=== PATIENT | female | born 2000 | race Caucasian/White ===

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

== ENCOUNTER 2019-01-25 12:03 | Emergency (ER) | payer OTHER ==
[2019-01-25 12:24] VITALS: BP 112/66; PULSE 82; RESP 20; TEMP 98.3
--- NOTE | 2019-01-25 12:35 | ED ---
Fall HPI - General Chief Complaint: Fall Stated Complaint: head injury from fall Time Seen by Provider: 01/25/19 12:26 Source: patient, RN notes reviewed Mode of arrival: ambulatory Limitations: no limitations - History of Present Illness Initial Comments: 18-year-old female presented emergency from chief complaint of headache, head injury. Patient states she was wrestling around with her friend yesterday states that she lost her balance was falling back into the wall though she has pulled off to the side toward the wall struck the ground with her head which is concrete floor. Patient states that she did not lose conscious though she felt dazed she had persistent headache associated nausea. Patient has no current neck pain, extremity weakness or paresthesias. Patient has no difficulty walking. No confusion per family. Patient did try taking some Tylenol with minimal relief. - Related Data Home Medications Medication Instructions Recorded Confirmed Acetaminophen Tab [Tylenol Tab] 1,000 mg PO Q6HR PRN 01/25/19 01/25/19 Levothyroxine Sodium [Tirosint] 88 mcg PO DAILY 01/25/19 01/25/19 Allergies Allergy/AdvReac Type Severity Reaction Status Date / Time latex Allergy Unknown Verified 01/25/19 12:40 all antibiotics Allergy Anaphylaxis Uncoded 01/25/19 12:24 Review of Systems ROS Statement: Those systems with pertinent positive or pertinent negative responses have been documented in the HPI. ROS Other: All systems not noted in ROS Statement are negative. Past Medical History Past Medical History: Thyroid Disorder Additional Past Medical History / Comment(s): autoimmune disorder, History of Any Multi-Drug Resistant Organisms: None Reported Past Surgical History: Adenoidectomy, Tonsillectomy Past Psychological History: Anxiety, Depression Smoking Status: Never smoker Past Alcohol Use History: None Reported Past Drug Use History: None Reported General Exam Limitations: no limitations General appearance: alert, in no apparent distress Head exam: Present: atraumatic, normocephalic, normal inspection Eye exam: Present: normal appearance, PERRL, EOMI. Absent: scleral icterus, conjunctival injection, periorbital swelling ENT exam: Present: normal exam, normal oropharynx, mucous membranes moist, TM's normal bilaterally Neck exam: Present: normal inspection, full ROM. Absent: tenderness, meningismus, lymphadenopathy Respiratory exam: Present: normal lung sounds bilaterally. Absent: respiratory distress, wheezes, rales, rhonchi, stridor Cardiovascular Exam: Present: regular rate, normal rhythm, normal heart sounds. Absent: systolic murmur, diastolic murmur, rubs, gallop, clicks Neurological exam: Present: alert, oriented X3, CN II-XII intact, reflexes normal. Absent: motor sensory deficit Skin exam: Present: warm, dry, intact, normal color. Absent: rash Course Vital Signs 01/25/19 12:21 Temperature 98.3 F Pulse Rate 82 Respiratory 20 Rate Blood Pressure 112/66 O2 Sat by Pulse 98 Oximetry Medical Decision Making - Medical Decision Making 18-year-old female presents emergency department for fall, head injury. CT is obtained secondary to headache, persistent nausea. Patient CT is unremarkable will be discharged return parameters were discussed. Disposition Clinical Impression: Fall, Head injury Disposition: HOME SELF-CARE Condition: Stable Instructions (If sedation given, give patient instructions): Head Injury (ED) Additional Instructions: Please return to the Emergency Department if symptoms worsen or any other concerns. Is patient prescribed a controlled substance at d/c from ED?: No Referrals: Ailyn Lomas MD [Primary Care Provider] - 1-2 days Time of Disposition: 13:16
--- NOTE | 2019-01-25 13:00 | CT ---
EXAMINATION TYPE: CT brain wo con DATE OF EXAM: 01/25/2019 COMPARISON: CT head 06/05/2009 HISTORY: Headache and nausea post head trauma. CT DLP: 989.5 mGycm. Automated Exposure Control for Dose Reduction was Utilized. Helical imaging thr ough the brain. TECHNIQUE: CT scan of the head is performed without contrast. FINDINGS: There is no acute intracranial hemorrhage, mass effect, or midline shift identified. The ventricles and sulci are within normal limits in size. The globes are intact and the visualized sin uses are clear. IMPRESSION: No acute intracranial hemorrhage, mass effect, or midline shift is seen.
== END 2019-01-25 13:20 | disposition home or self-care (01) ==
LOC: EC 12:03
DX: S09.90XA Unspecified injury of head, initial encounter (principal); E07.9 Disorder of thyroid, unspecified; Z79.890 Hormone replacement therapy; Z91.040 Latex allergy status; Z88.1 Allergy status to other antibiotic agents; W01.198A Fall on same level from slipping, tripping and stumbling with subsequent striking against other object, initial encounter; Y93.72 Activity, wrestling; Y93.83 Activity, rough housing and horseplay; Y92.009 Unspecified place in unspecified non-institutional (private) residence as the place of occurrence of the external cause
CPT/HCPCS: 70450; 99284

== ENCOUNTER → 2019-02-02 | Outpatient (CLI) | payer OTHER | END | disposition home or self-care (01) | LOC: LABWHC1 11:33 | PROVIDERS: ATTEND Internal Medicine Endocrinology, Diabetes & Metabolism | DX: E03.8 Other specified hypothyroidism (principal) | CPT/HCPCS: 36415; 84443 ==

== ENCOUNTER → 2019-03-29 | Outpatient (CLI) | payer OTHER | END | disposition home or self-care (01) | LOC: LABWHC1 12:49 | PROVIDERS: ATTEND Internal Medicine Endocrinology, Diabetes & Metabolism | DX: E03.8 Other specified hypothyroidism (principal) | CPT/HCPCS: 36415; 84443 ==

== ENCOUNTER → 2019-05-28 | Outpatient (CLI) | payer OTHER ==
[2019-05-28 13:16] LABS: Basophils # (A) 0.1 k/uL (0-0.2); Basophils % (A) 1 %; Eosinophils # (A) 0.1 k/uL (0-0.7); Eosinophils % (A) 3 %; HCT 38.7 % (34.0-46.0); Lymphocytes # (A) 0.9 k/uL (1.0-4.8); Lymphocytes % (A) 21 %; MCH 29.6 pg (25.0-35.0); MCHC 33.7 g/dL (31.0-37.0); MCV 87.9 fL (80.0-100.0); Mean Platelet Volume 8.2; Monocytes # (A) 0.5 k/uL (0-1.0); Monocytes % (A) 11 %; Neutrophils # (A) 2.6 k/uL (1.3-7.7); Neutrophils % (A) 61 %; Platelet Count 202 k/uL (150-450); RDW 13.8 % (11.5-15.5); WBC 4.3 k/uL (4.0-11.0)
== END | disposition home or self-care (01) ==
LOC: LABWHC1 11:15
PROVIDERS: ATTEND Internal Medicine Endocrinology, Diabetes & Metabolism
DX: Z00.01 Encounter for general adult medical examination with abnormal findings (principal); E03.8 Other specified hypothyroidism
CPT/HCPCS: 36415; 84443; 85025

== ENCOUNTER → 2019-07-22 | Outpatient (CLI) | payer OTHER | END | disposition home or self-care (01) | LOC: LABWHC1 13:35 | PROVIDERS: ATTEND Pediatrics Adolescent Medicine | DX: R94.6 Abnormal results of thyroid function studies (principal) | CPT/HCPCS: 36415; 84439; 84443; 86038 ==

== ENCOUNTER 2019-09-11 10:32 | Emergency (ER) | payer OTHER ==
[2019-09-11 10:39] VITALS: RESP 18
[2019-09-11] MEDS ORDERED: SODIUM CHLORIDE 0.9% 1,000 ML IV STA (10:56)
[2019-09-11] MEDS ORDERED: ONDANSETRON 4 MG/2 ML VIAL IVP STA (10:56)
[2019-09-11] MEDS ORDERED: KETOROLAC 30 MG/ML 1 ML VIAL IVP STA (10:56)
[2019-09-11] MEDS ORDERED: diphenhydrAMINE 50 MG/ML 1 ML VIAL IVP STA (10:56)
--- NOTE | 2019-09-11 11:04 | ED ---
Headache HPI - General Chief Complaint: Headache Stated Complaint: headache Time Seen by Provider: 09/11/19 10:41 Mode of arrival: ambulatory Limitations: no limitations - History of Present Illness Initial Comments: Patient is a 18-year-old female presenting to the emergency part with complaints of a headache 2 weeks. Patient states she has a history of headaches and occasional migraines but states it never lasted this long. Patient went to her PCP 5 days ago and was started on a migraine medicine, unsure of the name. Patient states it helped some but does not take the headache completely away. Patient states she came to the ER 2 days ago for evaluation however the wait was too long so she left AMA. Patient states yesterday she felt better so she did not come back in. Patient states she woke up this morning and her headache was back. She states it feels similar to previous headaches. Patient admits to photophobia as well as nausea. Patient denies fever, vomiting, diarrhea, chest pain, short of breath. Patient denies any trauma or injuries. Patient states she had a computed tomography scan of her head in January this year after suffering a concussion, and scan was normal. Patient has no other complaints at this time. Upon arrival to the ER, her vital signs are stable. - Related Data Home Medications Medication Instructions Recorded Confirmed Acetaminophen Tab [Tylenol Tab] 1,000 mg PO Q6HR PRN 01/25/19 01/25/19 Levothyroxine Sodium [Tirosint] 88 mcg PO DAILY 01/25/19 01/25/19 Previous Rx's Medication Instructions Recorded Ondansetron Odt [Zofran Odt] 4 mg PO Q8HR PRN #10 tab 09/11/19 Allergies Allergy/AdvReac Type Severity Reaction Status Date / Time latex Allergy Unknown Verified 01/25/19 12:40 all antibiotics Allergy Anaphylaxis Uncoded 01/25/19 12:24 Review of Systems ROS Statement: Those systems with pertinent positive or pertinent negative responses have been documented in the HPI. ROS Other: All systems not noted in ROS Statement are negative. Past Medical History Past Medical History: Thyroid Disorder Additional Past Medical History / Comment(s): autoimmune disorder, History of Any Multi-Drug Resistant Organisms: None Reported Past Surgical History: Adenoidectomy, Tonsillectomy Past Psychological History: Anxiety, Depression Smoking Status: Never smoker Past Alcohol Use History: None Reported Past Drug Use History: None Reported General Exam - General Exam Comments Initial Comments: GENERAL: Well-appearing, well-nourished and in no acute distress. HEAD: Atraumatic, normocephalic. EYES: Pupils equal round and reactive to light, extraocular movements intact, sclera anicteric, conjunctiva are normal. ENT: TMs normal, nares patent, oropharynx clear without exudates. Moist mucous membranes. NECK: Normal range of motion, supple without lymphadenopathy or JVD. LUNGS: Breath sounds clear to auscultation bilaterally and equal. No wheezes rales or rhonchi. HEART: Regular rate and rhythm without murmurs, rubs or gallops. ABDOMEN: Soft, nontender, normoactive bowel sounds. No guarding, no rebound. No masses appreciated. : Deferred EXTREMITIES: Normal range of motion, no pitting or edema. No clubbing or cyanosis. NEUROLOGICAL: Cranial nerves II through XII grossly intact. Normal speech, normal gait. PSYCH: Normal mood, normal affect. SKIN: Warm, Dry, normal turgor, no rashes or lesions noted. Limitations: no limitations Course Vital Signs 09/11/19 09/11/19 10:36 12:02 Temperature 98.4 F 98.7 F Pulse Rate 90 70 Respiratory 18 18 Rate Blood Pressure 114/69 111/75 O2 Sat by Pulse 98 98 Oximetry Medical Decision Making - Medical Decision Making Patient is a 18-year-old female presenting to the ER with a headache that has been intermittent for 2 weeks. Patient was recently started on migraine medicine from her doctor. Vital signs are stable upon arrival. Exam is unremarkable. Patient had recent CT of the head in January of this year which was normal. She denies any further trauma or injuries. Patient was given IV fluids, Toradol, Zofran, Benadryl reports significant improvement in her symptoms. Patient is requesting to be discharged. Patient will follow up with her PCP. Return parameters were discussed with her and she verbalized understanding. Patient is stable for discharge at this time. Disposition Clinical Impression: Headache Disposition: HOME SELF-CARE Condition: Stable Instructions (If sedation given, give patient instructions): Acute Headache (ED) Additional Instructions: Please return to the Emergency Department if symptoms worsen or any other concerns. Follow-up with PCP as discussed. May take Zofran as needed for nausea. Prescriptions: Ondansetron Odt [Zofran Odt] 4 mg PO Q8HR PRN #10 tab PRN Reason: Nausea Is patient prescribed a controlled substance at d/c from ED?: No Referrals: Ailyn Lomas MD [Primary Care Provider] - 1-2 days
[2019-09-11 12:03] VITALS: BP 111/75; PULSE 70; TEMP 98.7
== END 2019-09-11 11:54 | disposition home or self-care (01) ==
LOC: EC 10:32
DX: G43.909 Migraine, unspecified, not intractable, without status migrainosus (principal); E07.9 Disorder of thyroid, unspecified; Z79.890 Hormone replacement therapy; Z88.1 Allergy status to other antibiotic agents; Z91.040 Latex allergy status
CPT/HCPCS: 99283; 96374; 96375 ×2; 96361; J1200; J2405; J1885

== ENCOUNTER → 2019-10-02 | Outpatient (CLI) | payer OTHER ==
[2019-10-02 11:39] LABS: Basophils % (A) 0 %; Eosinophils # (A) 0.1 k/uL (0-0.7); Eosinophils % (A) 2 %; HCT 38.8 % (34.0-46.0); HGB 13.3 gm/dL (11.4-16.0); Lymphocytes # (A) 0.9 k/uL (1.0-4.8); Lymphocytes % (A) 16 %; MCH 29.3 pg (25.0-35.0); MCHC 34.2 g/dL (31.0-37.0); MCV 85.8 fL (80.0-100.0); Mean Platelet Volume 8.6; Monocytes # (A) 0.6 k/uL (0-1.0); Monocytes % (A) 11 %; Neutrophils # (A) 3.9 k/uL (1.3-7.7); Neutrophils % (A) 68 %; Platelet Count 245 k/uL (150-450); RBC 4.52 m/uL (3.80-5.40); RDW 13.6 % (11.5-15.5); WBC 5.8 k/uL (4.0-11.0)
[2019-10-02 16:59] LABS: African American GFR (CKD) 107.4 (60.0-200.0); Albumin 4.8 g/dL (3.80-4.90); Albumin/Globulin Ratio 2.53 (1.60-3.17); Anion Gap 10.4 mmol/L (4.00-12.00); BUN/Creat Ratio 14.44 Ratio (12.00-20.00); Calcium 9.5 mg/dL (8.7-10.3); Carbon Dioxide 25.6 mmol/L (21.6-31.8); Globulin 1.9 g/dL (1.6-3.3); Non-African American GFR(CKD) 92.7 (60.0-200.0); Potassium 4.2 mmol/L (3.5-5.5); Total Bilirubin 0.5 mg/dL (0.2-1.2); Total Protein 6.7 g/dL (6.2-8.2)
[2019-10-02 17:58] LABS: Cat Epith & Dander IgE <0.10 kU/L; Cockroach IgE <0.10 kU/L; Dermato. farinae IgE <0.10 kU/L; Dog Dander IgE <0.10 kU/L
[2019-10-02 17:59] LABS: Alternaria alternata IgE <0.10 kU/L; Aspergillus fumagatus IgE <0.10 kU/L; Cladosporian herbarum IgE <0.10 kU/L
[2019-10-02 18:01] LABS: Birch IgE <0.10 kU/L; Maple (Box Elder) IgE <0.10 kU/L; Oak IgE <0.10 kU/L
[2019-10-02 18:02] LABS: Elm IgE <0.10 kU/L; Ragweed,Common IgE <0.10 kU/L
[2019-10-02 18:03] LABS: Red Top (Bentgrass) IgE <0.10 kU/L
[2019-10-02 18:05] LABS: Egg White IgE <0.10 kU/L
[2019-10-02 18:06] LABS: Codfish IgE <0.10 kU/L
[2019-10-02 18:07] LABS: Peanut IgE <0.10 kU/L; Soybean IgE <0.10 kU/L
[2019-10-02 18:08] LABS: Clam IgE <0.10 kU/L; Shrimp IgE <0.10 kU/L; Walnut IgE (Food) <0.10 kU/L
[2019-10-02 18:09] LABS: Scallop IgE <0.10 kU/L
[2019-10-02 18:26] LABS: Immunoglobulin E 1.17 IU/mL (0.00-114.00); Immunoglobulin E 1.23 IU/mL (0.00-114.00)
[2019-10-04 04:22] LABS: Mycoplasma IgM Antibody 0.38 INDEX (<=0.90)
[2019-10-04 14:06] LABS: EBV-EA (IgG) 1.5 AI; EBV-EBNA(IgG) 6.9 AI; EBV-VCA (IgG) 5.7 AI; EBV-VCA (IgM) 0.4 AI
[2019-10-05 14:10] LABS: Strep DNASE B Antibody <86 U/mL (0-260)
== END | disposition home or self-care (01) ==
LOC: LABWHC1 11:13
PROVIDERS: ATTEND Pediatrics Adolescent Medicine
DX: G43.909 Migraine, unspecified, not intractable, without status migrainosus (principal)
CPT/HCPCS: 36415; 80053; 82785; 84439; 84443; 85025; 86003; 86060; 86215; 86663; 86664; 86665; 86738

== ENCOUNTER → 2020-03-07 | Outpatient (CLI) | payer OTHER | END | disposition home or self-care (01) | LOC: LABWHC1 14:44 | PROVIDERS: ATTEND Internal Medicine Endocrinology, Diabetes & Metabolism | DX: E03.8 Other specified hypothyroidism (principal) | CPT/HCPCS: 36415; 84443 ==

== ENCOUNTER 2020-07-25 01:05 | Emergency (ER) | payer OTHER ==
[2020-07-25] MEDS ORDERED: TOPICAL SKIN ADHESIVE 1 EACH AMP TOPICAL ONE (01:41)
--- NOTE | 2020-07-25 01:53 | ED ---
Psych HPI - General Source: police Mode of arrival: ambulatory <Jennifer Sanchez - Last Filed: 07/25/20 08:07> <Zen Joshua - Last Filed: 07/25/20 13:26> - General Chief Complaint: Psychiatric Symptoms Stated Complaint: petition Time Seen by Provider: 07/25/20 01:31 - History of Present Illness Initial Comments: Sourav smalls a 19-year-old female with a history of depression and anxiety who is brought to the ER today by her friendsafter she got very upset and used a hunting knife to cut her left arm. Patient reports she has a history of cutting she cuts herself frequently and that she didn't feel she needed be the hospital. UPon arrival in the ER parking lot patient ran and PD was called and found the patient approximately 0.5 mi from the hospital and brought her in. (Jennifer Sanchez) - Related Data Home Medications Medication Instructions Recorded Confirmed Levothyroxine Sodium [Tirosint-Ivet] 125 mcg PO DAILY 07/25/20 07/25/20 Allergies Allergy/AdvReac Type Severity Reaction Status Date / Time bacitracin Allergy Unknown Verified 07/25/20 09:13 [From Neosporin ([id number])] latex Allergy Unknown Verified 07/25/20 09:13 neomycin Allergy Unknown Verified 07/25/20 09:13 [From Neosporin ([id number])] polymyxin B Allergy Unknown Verified 07/25/20 09:13 [From Neosporin ([id number])] all antibiotics Allergy Anaphylaxis Uncoded 07/25/20 09:13 SEAFOOD Allergy Unknown Uncoded 07/25/20 09:13 Review of Systems ROS Other: All systems not noted in ROS Statement are negative. <Jennifer Sanchez - Last Filed: 07/25/20 08:07> ROS Other: All systems not noted in ROS Statement are negative. <Zen Joshua - Last Filed: 07/25/20 13:26> ROS Statement: Those systems with pertinent positive or pertinent negative responses have been documented in the HPI. Past Medical History Past Medical History: Thyroid Disorder Additional Past Medical History / Comment(s): autoimmune disorder, History of Any Multi-Drug Resistant Organisms: None Reported Past Surgical History: Adenoidectomy, Tonsillectomy Past Psychological History: Anxiety, Depression, PTSD Smoking Status: Never smoker Past Alcohol Use History: Occasional Past Drug Use History: None Reported <Jennifer Sanchez - Last Filed: 07/25/20 08:07> General Exam Limitations: no limitations <Jennifer Sanchez - Last Filed: 07/25/20 08:07> - General Exam Comments Initial Comments: Physical Exam GENERAL: Patient is well-developed and well-nourished. Patient is nontoxic and well-hydrated and is in no distress. HENT: Normocephalic, Atraumatic. EYES: PERRL, EOMI PULMONARY: Unlabored respirations. CARDIOVASCULAR: RRR Warm and well perfused extremities ABDOMEN: Non-distended SKIN: Laceration to anterior upper arm approx 5cm in length, superficial, no significant bleeding Superficial laceration left forearm, 3cm in length, no significant bleeding Scars on arms consistent with history of cutting : Deferred NEUROLOGIC: Alert and oriented Normal speech Normal gait MUSCULOSKELETAL: Moving all extremities with no apparent injury PSYCHIATRIC: Agitation (Jennifer Sanchez) Course Vital Signs 07/25/20 07/25/20 07/25/20 01:13 02:09 09:55 Temperature 99.1 F 98.7 F 98.4 F Pulse Rate 165 H 129 H 92 Respiratory 26 H 16 17 Rate Blood Pressure 131/65 105/58 113/71 O2 Sat by Pulse 98 99 98 Oximetry Procedures - Laceration Laceration #1 Consent Obtained: verbal consent Indication: laceration Site: upper extremity Size (cm): 3 Description: linear Depth: simple, single layer Type of Sutures: other (skin glue) Patient Tolerated Procedure: well Laceration #2 Consent Obtained: verbal consent Indication: laceration Site: upper extremity Size (cm): 5 Description: linear Depth: simple, single layer Type of Sutures: other (skin glue) Patient Tolerated Procedure: well, no complications <Jennifer Sanchez - Last Filed: 07/25/20 08:07> Medical Decision Making <Jennifer Sanchez - Last Filed: 07/25/20 08:07> <Zen Joshua - Last Filed: 07/25/20 13:26> - Medical Decision Making Patient was seen and evaluated history is obtained from patient and PD superficial lacerations were cleansed with Betadine and repaired with skin glue She was medically cleared for evaluation by EPS, patient care was signed out to Dr. Joshua at 7 AM pending evaluation by EPS (Jennifer Sanchez) Patient seen by mental health services with plans for discharge. Follow-up information was not provided. Patient reevaluated. Patient denies suicidal thoughts and does contract for safety. (Zen Joshua) - Lab Data Lab Results 07/25/20 Range/Units 02:00 Urine Opiates Screen Not Detected (NotDetected) Ur Oxycodone Screen Not Detected (NotDetected) Urine Methadone Screen Not Detected (NotDetected) Ur Propoxyphene Screen Not Detected (NotDetected) Ur Barbiturates Screen Not Detected (NotDetected) U Tricyclic Antidepress Not Detected (NotDetected) Ur Phencyclidine Scrn Not Detected (NotDetected) Ur Amphetamines Screen Not Detected (NotDetected) U Methamphetamines Scrn Not Detected (NotDetected) U Benzodiazepines Scrn Not Detected (NotDetected) Urine Cocaine Screen Not Detected (NotDetected) U Marijuana (THC) Screen Not Detected (NotDetected) Disposition Is patient prescribed a controlled substance at d/c from ED?: No <Jennifer Sanchez - Last Filed: 07/25/20 08:07> Is patient prescribed a controlled substance at d/c from ED?: No Time of Disposition: 13:26 <Zen Joshua - Last Filed: 07/25/20 13:26> Clinical Impression: Alcohol intoxication, Self-harm, Laceration of left upper arm Disposition: HOME SELF-CARE Instructions (If sedation given, give patient instructions): Skin Adhesive Care (ED), Depression (ED), Help Prevent Suicide (ED) Additional Instructions: Please follow-up with mental health services as rectum. Please also follow-up with primary care physician in the next day or 2 for recheck. Return for thoughts of self-harm, worsening symptoms or other concerns. Referrals: Ailyn Lomas MD [Primary Care Provider] - 1-2 days
[2020-07-25 02:20] LABS: Amphetamine Screen,Urine Not Detected (NotDetected); Barbiturate Screen,Urine Not Detected (NotDetected); Benzodiazepines Screen,Urine Not Detected (NotDetected); Cocaine Screen,Urine Not Detected (NotDetected); Methadone Screen, Urine Not Detected (NotDetected); Opiate Screen,Urine Not Detected (NotDetected); Oxycodone Screen, Urine Not Detected (NotDetected); Phencyclidine Screen,Urine Not Detected (NotDetected); Tricyclic Antidepressant,Urine Not Detected (NotDetected); Urn Cannabinoid Scrn Not Detected (NotDetected)
[2020-07-25] MEDS ORDERED: ACETAMINOPHEN TAB 325 MG TAB PO STA (10:05)
[2020-07-25 14:05] VITALS: BP 110/74; PULSE 90; RESP 16; TEMP 98.5
== END 2020-07-25 14:06 | disposition home or self-care (01) ==
LOC: EC 01:05
DX: S41.112A Laceration without foreign body of left upper arm, initial encounter (principal); S51.812A Laceration without foreign body of left forearm, initial encounter; F10.129 Alcohol abuse with intoxication, unspecified; E07.9 Disorder of thyroid, unspecified; Y90.9 Presence of alcohol in blood, level not specified; Z79.890 Hormone replacement therapy; Z88.1 Allergy status to other antibiotic agents; Z91.040 Latex allergy status; X78.1XXA Intentional self-harm by knife, initial encounter
CPT/HCPCS: 12004; 80306; 82075; 99284

== ENCOUNTER → 2021-08-21 | Outpatient (CLI) | payer OTHER ==
[2021-08-21 19:40] LABS: T4, Free (Free Thyroxine) 1.4 ng/dL (0.800-1.800)
== END | disposition home or self-care (01) ==
LOC: LABWHC1 13:25
PROVIDERS: ATTEND Internal Medicine Endocrinology, Diabetes & Metabolism
DX: E03.8 Other specified hypothyroidism (principal)
CPT/HCPCS: 36415; 84439; 84443; 86376

== ENCOUNTER → 2022-12-31 | Outpatient (CLI) | payer BC | END | disposition home or self-care (01) | LOC: LABWHC1 13:32 | PROVIDERS: ATTEND Internal Medicine Endocrinology, Diabetes & Metabolism | DX: E03.8 Other specified hypothyroidism (principal) | CPT/HCPCS: 36415; 84443 ==

== ENCOUNTER → 2023-07-08 | Outpatient (CLI) | payer BC ==
[2023-07-08 19:34] LABS: T4, Free (Free Thyroxine) 1.42 ng/dL (0.80-1.80)
== END | disposition home or self-care (01) ==
LOC: LABWHC1 12:59
PROVIDERS: ATTEND Internal Medicine Endocrinology, Diabetes & Metabolism
DX: E03.8 Other specified hypothyroidism (principal)
CPT/HCPCS: 36415; 84439; 84443

== ENCOUNTER → 2023-12-30 | Outpatient (CLI) | payer BC | END | disposition home or self-care (01) | LOC: LABWHC1 12:16 | PROVIDERS: ATTEND Internal Medicine Endocrinology, Diabetes & Metabolism | DX: E03.8 Other specified hypothyroidism (principal); E06.3 Autoimmune thyroiditis | CPT/HCPCS: 36415; 84443; 86376 ==

== ENCOUNTER → 2024-03-29 | Outpatient (CLI) | payer BC ==
--- NOTE | 2024-03-30 11:15 | XR ---
EXAMINATION TYPE: XR cervical spine comp DATE OF EXAM: 03/29/2024 COMPARISON: None HISTORY: 23-year-old female M5 4.2, cervicalgia, neck pain for one month TECHNIQUE: 5 views FINDINGS: No predental space widening or prevertebral soft tissue swelling. Alignment is maintained. Disc inter spaces are preserved. Normal odontoid view. No significant bony neural foraminal narrowing on either side. IMPRESSION: No specific radiographic abnormality of the cervical spine.
== END | disposition home or self-care (01) ==
LOC: RADXRMAIN 15:30
PROVIDERS: ATTEND Internal Medicine
DX: M54.2 Cervicalgia (principal)
CPT/HCPCS: 72050

== ENCOUNTER → 2024-04-07 | Outpatient (CLI) | payer BC | END | disposition home or self-care (01) | LOC: LABWHC1 14:08 | PROVIDERS: ATTEND Internal Medicine Endocrinology, Diabetes & Metabolism | DX: E03.8 Other specified hypothyroidism (principal) | CPT/HCPCS: 36415; 84443 ==

== ENCOUNTER → 2024-05-07 | Outpatient (CLI) | payer BC ==
--- NOTE | 2024-05-27 18:03 | MR ---
Site ID synapse default Patient Sourav Steward M ID 2000 Age/Gender: 23Y, F Order # N/A Procedure MR cervical spine wo con Date 05/07/2024 2:32:37 PM EXAMINATION TYPE: MR cervical spine wo con DATE OF EXAM: 05/08/2024 COMPARISON: Cervical spine radiographs 03/29/2024 HISTORY: Neck pain, headaches TECHNIQUE: Multiplanar, multisequence images of the cervical spine were acquired without contrast. FINDINGS: Alignment: The cervical vertebral bodies have preserved heights. Alignment is within normal limits gi louie patient positioning. Bones: Bone signal is within normal limits. \ Cord: The spinal cord is unremarkable with regards to their signal intensity and morphology. Discs: Intervertebral disc signal is maintained. C2-C3: No significant disc pathology. The spinal canal is patent. No neural foraminal stenosis. C3-C4: No significant disc pathology. The spinal canal is patent. No neural foraminal stenosis. C4-C5: No significant disc pathology. The spinal canal is patent. Uncovertebral joint hypertrophy re sulting in mild right neural foraminal stenosis (series 601, 34). The left neural foramen is patent. C5-C6: No significant disc pathology. The spinal canal is patent. No neural foraminal stenosis. C6-C7: No significant disc pathology. The spinal canal is patent. No neural foraminal stenosis. C7-T1: No significant disc pathology. The spinal canal is patent. No neural foraminal stenosis. Other: Hypertrophic pharyngeal tonsil. IMPRESSION: 1. No evidence for disc herniation or significant spinal canal stenosis. 2. Mild right C4-C5 neural foraminal stenosis secondary to uncovertebral joint hypertrophy.
== END | disposition home or self-care (01) ==
LOC: RADMRIMAIN 15:18
PROVIDERS: ATTEND Internal Medicine
DX: M47.812 Spondylosis without myelopathy or radiculopathy, cervical region (principal); M48.02 Spinal stenosis, cervical region
CPT/HCPCS: 72141

== ENCOUNTER → 2024-06-08 | Outpatient (CLI) | payer BC ==
[2024-06-08 16:32] LABS: Basophils # (A) 0.04 X 10*3/uL (0.00-0.10); Basophils % (A) 0.8 %; Eosinophils # (A) 0.09 X 10*3/uL (0.04-0.35); Eosinophils % (A) 1.8 %; HCT 41.7 % (37.2-46.3); HGB 14.2 g/dL (12.0-15.0); Lymphocytes # (A) 0.96 X 10*3/uL (0.90-5.00); Lymphocytes % (A) 19.4 %; MCH 30.9 pg (27.0-32.0); MCHC 34.1 g/dL (32.0-37.0); MCV 90.7 FL (80.0-97.0); Mean Platelet Volume 12.4 FL (9.5-12.2); Monocytes # (A) 0.53 X 10*3/uL (0.20-1.00); Monocytes % (A) 10.7 %; NRBC Per 100 WBC 0 X 10*3/uL (0.00-0.01); Neutrophils # (A) 3.31 X 10*3/uL (1.80-7.70); Neutrophils % (A) 67.1 %; Platelet Count 188 X 10*3/uL (140-440); RDW 12.6 % (11.5-14.5); WBC 4.94 X 10*3/uL (4.50-10.00)
[2024-06-08 17:32] LABS: ALT 12 U/L (8-44); AST 14 U/L (13-35); Albumin 4.9 g/dL (3.8-4.9); Albumin/Globulin Ratio 2.58 Ratio (1.60-3.17); Alkaline Phosphatase 44 U/L (41-126); BUN/Creat Ratio 10.33 Ratio (12.00-20.00); Blood Urea Nitrogen 9.3 mg/dL (9.0-27.0); Calcium 9.7 mg/dL (8.7-10.3); Chloride 103 mmol/L (96-109); Globulin 1.9 g/dL (1.6-3.3); Glucose 86 mg/dL (70-110); Potassium 4.8 mmol/L (3.5-5.5); Sodium 138 mmol/L (135-145); T4, Free (Free Thyroxine) 1.08 ng/dL (0.80-1.80); Total Bilirubin 0.5 mg/dL (0.3-1.2); Total Protein 6.8 g/dL (6.2-8.2)
== END ==
LOC: LABWHC1 09:18
PROVIDERS: ATTEND Internal Medicine Endocrinology, Diabetes & Metabolism
DX: E03.8 Other specified hypothyroidism (principal)
CPT/HCPCS: 36415; 80053; 84439; 84443; 85025

== ENCOUNTER → 2024-08-05 | Outpatient (CLI) | payer BC | END | disposition home or self-care (01) | LOC: LABWHC1 09:14 | PROVIDERS: ATTEND Internal Medicine Endocrinology, Diabetes & Metabolism | DX: E03.8 Other specified hypothyroidism (principal) | CPT/HCPCS: 36415; 84443 ==

== ENCOUNTER → 2024-09-30 | Outpatient (CLI) | payer BC ==
--- NOTE | 2024-09-30 15:03 | NM ---
EXAMINATION TYPE: NM hepatobiliary w EF DATE OF EXAM: 09/30/2024 9:14 AM COMPARISON: 01/14/2016 CLINICAL INDICATION:Female, 23 years old with history of R10.13 dyspepsia; TECHNIQUE: The patient was given 5.2 mCi of Technetium 99m-Mebrofenin as a radiotracer and multiple scintigraphic images were obtained of the abdomen. Gallbladder function was also assessed after the a dministration ensure drink and additional scintigraphic images were obtained of the abdomen. A region of interest was drawn over the gallbladder and a timing activity curve was generated. The gallbladde r ejection fraction was calculated. FINDINGS: Normal uptake of radiotracer was identified within the liver with excretion into the hepatic and comm on biliary ducts within 6 min. There was normal progressive washout of the liver over the course of t he study. Radiotracer uptake within the gallbladder at 8 minutes as well as small bowel activity was identified at 30 minutes. Maximum calculated gallbladder ejection fraction is: 69% at 30 minutes (Normal gallbladder ejection fraction is > 35%) IMPRESSION: 1. Normal hepatobiliary scan. 2. Normal ejection fraction. [facility], , 09/30/2024 3:01 PM
== END | disposition home or self-care (01) ==
LOC: RADNMMAIN 07:01
PROVIDERS: ATTEND Internal Medicine
DX: R10.13 Epigastric pain (principal)
CPT/HCPCS: 78226; A9537

== ENCOUNTER → 2024-10-01 | Outpatient (CLI) | payer BC ==
--- NOTE | 2024-10-01 09:27 | US ---
EXAMINATION TYPE: US gallbladder DATE OF EXAM: 10/01/2024 COMPARISON: 05/05/2018 CLINICAL INDICATION: Female, 23 years old with history of R10.13 EPIGASTRIC PAIN; Patient states she hasn't been feeling well x few months. N/V. TECHNIQUE: Grayscale and color Doppler imaging of the right upper quadrant was performed. FINDINGS: EXAM MEASUREMENTS: Liver Length: 15.0 cm Gallbladder Wall: 0.1 cm CBD: 0.2 cm Right Kidney: 11.9 x 4.0 x 3.6 cm Pancreas: wnl Liver: wnl Gallbladder: No stones or wall thickening Evidence for sonographic Perez's sign: neg CBD: wnl Right Kidney: No hydronephrosis or masses seen IMPRESSION: No evidence for acute process. [facility], , 10/01/2024 9:24 AM
== END | disposition home or self-care (01) ==
LOC: RADUSWWP 08:50
PROVIDERS: ATTEND Internal Medicine
DX: R10.13 Epigastric pain (principal); R11.2 Nausea with vomiting, unspecified
CPT/HCPCS: 76705

== ENCOUNTER → 2024-10-11 | Outpatient (CLI) | payer BC | END | disposition home or self-care (01) | LOC: LABWHC1 14:18 | PROVIDERS: ATTEND Internal Medicine Endocrinology, Diabetes & Metabolism | DX: E03.8 Other specified hypothyroidism (principal) | CPT/HCPCS: 36415; 84443 ==

== ENCOUNTER 2024-10-29 11:52 | Day surgery (SDC) | payer BC ==
[2024-10-28 08:37] VITALS: BMI 26.9
[~2024-10-29 11:52] MED LIST: LACTATED RINGERS 1,000 ML IV SCH
[2024-10-29 13:04] VITALS: TEMP 97.9
[2024-10-29] MEDS: LACTATED RINGERS 1,000 ML IV ONE (13:12)
[2024-10-29] MEDS ORDERED: PROPOFOL 10 MG/ML 20 ML VIAL IV ONE (13:42)
[2024-10-29] MEDS ORDERED: LIDOCAINE 1% INJ 10MG/ML (20 ML MDV) ONE (13:42)
--- NOTE | 2024-10-29 13:51 | P.PCN ---
Date of Procedure: 10/29/24 Procedure(s) Performed: BRIEF HISTORY: Patient is a 23-year-old, pleasant, white female scheduled for an upper endoscopy as a part evaluation of intermittent nausea vomiting for the last several months duration. She has these episodes once or twice a week. No help with PPIs in the past. Currently on Zofran or Pepcid meclizine as needed. PROCEDURE PERFORMED: Esophagogastroduodenoscopy with biopsy. PREOPERATIVE DIAGNOSIS: Chronic intermittent nausea vomiting. IV sedation per anesthesia. PROCEDURE: After informed consent was obtained, the patient was brought into the endoscopy unit. IV sedation was administered by Anesthesia under continuous monitoring. Initially the Olympus GIF-140 video endoscope was inserted into the mouth. Esophagus intubated without any difficulty. It was gradually advanced into the stomach and duodenum and carefully examined. The bulb and the second part of the duodenum appeared normal. Biopsies were done from the duodenum rule out celiac disease. The scope at this time was withdrawn to the stomach, adequately insufflated with air, and upon careful examination, mucosa of the antrum, and mild gastritis and biopsies were done from this area. Mucosa of the body, cardia and the fundus appeared normal. The scope was then withdrawn into the esophagus. The GE junction was located at 39 cm from the incisors. The esophagus appeared normal. There were no erosions or ulcerations seen biopsies were done from the distal esophagus and the patient tolerated the procedure well. IMPRESSION: 1. Mild antral gastritis. 2. No evidence of esophagitis or peptic ulcer disease. RECOMMENDATIONS: The findings of this examination were discussed with the patient as well as her family. She was advised to follow-up with the biopsy results. Continue with Zofran as needed. Follow-up in the office in 2 to 3 weeks..
[2024-10-29 14:21] VITALS: BP 109/68; PULSE 67; RESP 16
== END 2024-10-29 14:31 ==
LOC: ORWHC2ENDO 11:52
PROVIDERS: ATTEND Internal Medicine Gastroenterology
DX: K31.9 Disease of stomach and duodenum, unspecified (principal); K29.70 Gastritis, unspecified, without bleeding; E07.9 Disorder of thyroid, unspecified; F41.9 Anxiety disorder, unspecified; F32.A Depression, unspecified; F43.10 Post-traumatic stress disorder, unspecified; K21.9 Gastro-esophageal reflux disease without esophagitis; D89.89 Other specified disorders involving the immune mechanism, not elsewhere classified; Z79.890 Hormone replacement therapy; Z79.899 Other long term (current) drug therapy; Z88.1 Allergy status to other antibiotic agents; Z91.013 Allergy to seafood; Z88.6 Allergy status to analgesic agent
CPT/HCPCS: 81025; 88305; 43239; J2003; J2704

== ENCOUNTER → 2025-01-11 | Outpatient (CLI) | payer BC | END | disposition home or self-care (01) | LOC: LABWHC1 11:20 | PROVIDERS: ATTEND Internal Medicine Endocrinology, Diabetes & Metabolism | DX: E03.8 Other specified hypothyroidism (principal) | CPT/HCPCS: 36415; 84443 ==

== ENCOUNTER → 2025-03-21 | Outpatient (CLI) | payer BC | END | disposition home or self-care (01) | LOC: LABWHC1 14:11 | PROVIDERS: ATTEND Internal Medicine Endocrinology, Diabetes & Metabolism | DX: E03.8 Other specified hypothyroidism (principal) | CPT/HCPCS: 36415; 84443 ==